=== PATIENT | female | born 1965 | race Caucasian/White ===

== ENCOUNTER 2017-02-20 08:11 | Observation (INO) | payer OTHER ==
[~2017-02-20] VITALS: Ht 162.6 cm; Wt 97.3 kg
[2017-02-20] VITALS (15 sets, daily range): BP systolic 98–165; BP diastolic 53–104; PULSE 50–77; RESP 16–24; Ht 162.6 cm; Wt 97.3 kg
[~2017-02-20 08:11] MED LIST: ACETAMINOPHEN 1000 MG/100 ML IVPB ONE; CEFAZOLIN 1 GM INJ ONE; CEFAZOLIN 2 GM/50 ML (PMX) 50 ML IVPB SCH; SOD CHLORIDE 0.9% 1,000 ML IV SCH
[2017-02-20 11:13] LABS: BASOPHILS % 0.8 % (0.0-2.0); EOSINOPHILS # 0.1 10^3/ul (0.0-0.5); EOSINOPHILS % 2.1 % (0.0-7.0); HEMATOCRIT 43.6 % (37.0-47.0); HEMOGLOBIN 14.5 g/dl (12.0-16.0); LYMPHOCYTES # 1.8 10^3/ul (0.8-2.9); LYMPHOCYTES % 36.6 % (15.0-51.0); MEAN CORPUSCULAR HEMOGLOBIN 29.1 pg (29.0-33.0); MEAN CORPUSCULAR HGB CONC 33.3 g/dl (32.0-37.0); MEAN CORPUSCULAR VOLUME 87.4 fl (82.0-101.0); MEAN PLATELET VOLUME 10.2 fl (7.4-10.4); MONOCYTE # 0.4 10^3/ul (0.3-0.9); NEUTROPHIL # 2.5 10^3/ul (1.6-7.5); NEUTROPHILS % 51.3 % (39.0-77.0); PLATELET COUNT 362 10^3/UL (140-415); RED BLOOD COUNT 4.99 10^6/ul (4.20-5.40); RED CELL DISTRIBUTION WIDTH 14.3 % (11.5-14.5); WHITE BLOOD COUNT 4.8 10^3/ul (4.8-10.8)
[2017-02-20 11:30] LABS: INR 0.91; PROTIME 12.3 Sec (12.2-14.2)
[2017-02-20 11:31] LABS: PARTIAL THROMBOPLASTIN TIME 31.3 Sec (25.0-35.0)
[2017-02-20] MEDS ORDERED: FENTAnyl 50 MCG/ML VIAL ONE (13:46)
[2017-02-20] MEDS ORDERED: MIDAZOLAM 1 MG/ML 2 ML INJ ONE (13:46)
[2017-02-20] MEDS ORDERED: PROPOFOL 20 ML ONE (13:46)
[2017-02-20 13:49] LABS: ALBUMIN 3.8 g/dl (3.3-4.9); ALBUMIN/GLOBULIN RATIO 1.26; BILIRUBIN,INDIRECT 0.3 mg/dl (0-1.1); BILIRUBIN,TOTAL 0.3 mg/dl (0.2-1.3); POTASSIUM 4.5 mmol/L (3.5-5.1); TOTAL PROTEIN 6.8 g/dl (6.1-8.1)
[2017-02-20 13:50] LABS: CALCIUM 9.1 mg/dl (8.4-10.2); CREATININE 0.61 mg/dl (0.44-1.00)
[2017-02-20] MEDS ORDERED: ISOSULFAN BLUE 1% 5 ML INJ SC ONE (14:01)
[2017-02-20] MEDS ORDERED: ONDANSETRON 4 MG INJ ONE (14:17)
[2017-02-20] MEDS ORDERED: DEXAMETHASONE 4 MG/ML 1 ML INJ ONE (14:17)
[2017-02-20] MEDS ORDERED: METOCLOPRAMIDE 10 MG INJ ONE (14:21)
[2017-02-20] MEDS ORDERED: morphine 10 MG INJ ONE (14:45)
[2017-02-20] MEDS ORDERED: HYDROmorphONE (0.2 MG/ML) 10ML SYG IV PRN ×2 (15:00)
[2017-02-20] MEDS ORDERED: LABETALOL HCL 20MG INJ IV PRN (15:00)
[2017-02-20] MEDS ORDERED: FENTAnyl 50 MCG/ML VIAL IV PRN ×2 (15:00)
[2017-02-20] MEDS ORDERED: hydrALAzine 20 MG INJ IV PRN (15:00)
[2017-02-20] MEDS ORDERED: OXYCODONE/ACETAMINOPHEN (5/325) TAB PO PRN (15:00)
[2017-02-20] MEDS ORDERED: ONDANSETRON 4 MG INJ IV PRN ×2 (15:00→16:00)
[2017-02-20] MEDS ORDERED: MEPERIDINE 25 MG INJ IV PRN (15:00)
[2017-02-20] MEDS ORDERED: LABETALOL HCL 20MG INJ ONE (15:41)
--- NOTE | 2017-02-20 15:55 | OPR ---
DATE OF OPERATION: PREOPERATIVE DIAGNOSIS: Invasive cancer of the left breast. POSTOPERATIVE DIAGNOSIS: Invasive cancer of the left breast. PROCEDURE: Needle-directed left partial mastectomy with axillary dissection utilizing sentinel lymp h node technique. ANESTHESIA: General. ANESTHESIOLOGIST: Dr. Roney Anderson. SURGEON: Иван Dotson MD COORDINATOR OF HEALTH SERVICES: Dr. Burnett. INDICATIONS FOR PROCEDURE: The patient is an unfortunate 51-year-old female who underwent screening mammography, was found to have suspicious lesions in her left breast. Two lesions were biopsied. They both were cancer. The patient was interested in breast conservation, so she was counseled on t he benefit of attempted breast conservation with needle-directed left partial mastectomy utilizing a bracketing technique and axillary dissection utilizing sentinel lymph node technique. She consente d and was scheduled for surgery. DESCRIPTION OF PROCEDURE: On the morning of surgery. The patient presented to [facility] where she underwent localization of the lesions performed by attending radi ologist, Dr. Willy Aquino. Subsequently, she was brought to the operating theater, placed under general anesthesia. The left breast and axillary region was prepped and draped in usual sterile fas hion. Approximately 4 mL of 1% Lymphazurin blue dye were then injected peritumorally. The breast w as gently massaged for approximately 12 minutes. At this point, a 4-5 cm incision was made in the l eft axillary hairline. Subcutaneous tissue and a significant amount of subcutaneous adipose tissue was dissected with cautery down to the clavipectoral fascia. Clavipectoral fascia was opened and th e axilla was entered. There was significant fibrosis and it was difficult to identify a dye-stained lymphatic. Therefore, Dr. Dotson proceeded with axillary dissection with blunt dissection along th e chest wall. The long thoracic nerve was identified and kept out of harm's way. More superiorly, the axillary vein was identified and dissected from medial to lateral. The thoracodorsal neurovascu lar bundle was then identified and dissected throughout its course. The node bearing tissue between the long thoracic nerve of thoracodorsal nerves was then harvested using the LigaSure device. Spec imen was elevated, transected, and sent for permanent pathologic analysis. The wound was irrigated. Minimal bleeding was controlled with cautery. A #10 flat Payam-Yi drain was then brought thr ough the left mid axillary line, cut to size, laid within the axilla and secured in place with 2-0 n ylon suture in the standard fashion. The axillary incision was then closed with 4-0 Vicryl suture i n subcuticular fashion. Attention was then directed to performing a partial mastectomy. A periareolar incision was made fro m the 12 o'clock location through the 3 o'clock location to the 6 o'clock location. Subcutaneous ti ssue was dissected with cautery. The skin edges were elevated with skin hooks. Wide circumferentia l dissection of the tissue associated with the [address] then took place using cautery. Sp ecimen was elevated, transected, oriented, and sent for radiographic confirmation of capture. Captu re was confirmed. Specimen was then sent for permanent pathologic analysis. The wound was irrigate d. Bleeding was controlled with cautery. There was a very large defect due to the multifocal natur e of the cancer. Therefore, Dr. Dotson made the decision to place a #10 flat Payam-Yi drain int o the wound cavity. This was done by passing it through the left mid axillary line. It was cut to size, laid within the wound cavity and secured in place with 2-0 nylon suture in standard fashion. The skin incision was then closed with 4-0 Vicryl suture in subcuticular fashion and Dermabond was a pplied to both incisions. The patient tolerated procedure well. The estimated blood loss was appro ximately 50 mL. There were no complications and the patient was transported in stable condition to the recovery room. Dictated By: ИВАН REN/IVAN Conf#: [id number] DID#: [id number]
[2017-02-20] MEDS ORDERED: morphine 2 MG INJ IV PRN (16:00)
--- NOTE | 2017-02-20 16:08 | RADRPT ---
Vent Rate: 61 bpm RR Interval: 0 msec [place] Interval: 110 msec QRS Duration: 94 msec QT Interval: 420 msec QTC Interval: 422 msec P-R-T [place]: 30 - 31 - 41 degrees Sinus rhythm with short [place] Otherwise normal ECG Electronically Signed By: Ray Rosario [id number]
[2017-02-20] MEDS: D5W-0.45 NACL + KCL 20 MEQ 1,000 ML IV SCH ×2 (17:06→23:54)
[2017-02-20] MEDS: ACETAMINOPHEN 1000MG/100ML IV 100 ML IVPB PRN ×2 (17:07→23:53)
[2017-02-20] MEDS: OXYCODONE/ACETAMINOPHEN (5/325) TAB PO PRN (21:50)
[2017-02-21 04:00] VITALS: BP 111/58; PULSE 62; RESP 17
[2017-02-21 08:00] VITALS: BP 101/58; RESP 17
[2017-02-21] MEDS: D5W-0.45 NACL + KCL 20 MEQ 1,000 ML IV SCH ×2 (08:13→15:30)
[2017-02-21] MEDS: OXYCODONE/ACETAMINOPHEN (5/325) TAB PO PRN ×2 (08:17→14:19)
--- NOTE | 2017-02-21 11:46 | PN ---
Date/Time of Note Date/Time of Note DATE: 02/21/17 TIME: 11:45 Assessment/Plan VTE Prophylaxis VTE Prophylaxis Intervention: other Lines/Catheters IV Catheter Type (from Nrsg): Peripheral IV Urinary Cath still in place: No Assessment/Plan Chief Complaint/Hosp Course 1) breast cancer - s/p surgery - postoperative care Problems: Subjective 24 Hr Interval Summary Free Text/Dictation Patient feeling ok, not too much pain Exam/Review of Systems Vital Signs Vitals Vital Signs Date Time Temp Pulse Resp B/P Pulse Ox O2 Delivery O2 Flow Rate FiO2 02/21/17 08:00 98.4 68 17 101/58 99 02/21/17 04:00 Room Air 02/20/17 16:24 2.0 Intake and Output 02/20/17 02/20/17 02/21/17 15:00 23:00 07:00 Intake Total 1325 ml 2080 ml Output Total 110 ml 55 ml Balance 1215 ml 2025 ml Exam Constitutional: well developed Head: atraumatic, normocephalic Neck: supple Respiratory: clear to auscultation Cardiovascular: regular rate and rhythm Gastrointestinal: non-tender, soft Extremities: normal pulses Results Result Diagram: 02/20/17 1055 02/20/17 1300 Results 24 hrs Laboratory Tests Test 02/20/17 13:00 Sodium Level 141 Potassium Level 4.5 Chloride Level 102 Carbon Dioxide Level 26 Anion Gap 18 H Blood Urea Nitrogen 6 L Creatinine 0.61 Glucose Level 78 Calcium Level 9.1 Total Bilirubin 0.3 Direct Bilirubin 0.00 Indirect Bilirubin 0.3 Aspartate Amino Transf (AST/SGOT) 60 H Alanine Aminotransferase (ALT/SGPT) 32 Alkaline Phosphatase 101 Total Protein 6.8 Albumin 3.8 Globulin 3.00 Albumin/Globulin Ratio 1.26 Medications Medications Current Medications Ondansetron HCl 4 mg 4 mg Q6H PRN IV NAUSEA AND/OR VOMITING; Start 02/20/17 at 16:00 Potassium Chloride/Dextrose/ Sod Cl (D5-1/2ns + KCl 20 Meq) 1,000 ml @ 125 mls/ hr Q8H IV Last administered on 02/21/17t 08:13; Admin Dose 125 MLS/HR; Start 02/20/17 at 15:30 Morphine Sulfate 2 mg 2 mg Q1H PRN IV PAIN; Start 02/20/17 at 16:00 Acetaminophen (Ofirmev 1000mg/ 100ml Iv) 100 ml @ 400 mls/hr Q6H PRN IVPB PAIN Last administered on 02/20/17 23:53; Admin Dose 400 MLS/HR; Start at 16:00 Oxycodone/ Acetaminophen (Percocet (5/ 325)) 1 tab Q4H PRN PO PAIN Last administered on 02/21/17 08:17; Admin Dose 1 TAB; Start 02/20/17 at 20:30 LACI ANAYA Feb 21, 2017 11:46
--- NOTE | 2017-02-21 13:03 | HP ---
DATE OF ADMISSION: 02/20/2017 HISTORY OF PRESENT ILLNESS: Patient is a 51-year-old female with history of nipple discharge which was subsequently investigated by ultrasound and mammogram and subsequently the patient underwent bio psy and was diagnosed with invasive cancer of the left breast. The patient underwent needle directe d left partial mastectomy with axillary dissection. The patient had significant postoperative pain. The patient is being admitted for further evaluation and management. The patient denied any histo ry of headache, dizziness, syncope. No history of fever or chills. No history of nausea, vomiting, or diarrhea. No history of abdominal pain. No history of focal weakness. No history of fever or chills. No history of shortness of breath. REVIEW OF SYSTEMS: Other than postoperative pain the review of systems are unremarkable. PAST SURGICAL HISTORY: Status post hysterectomy. FAMILY HISTORY: Noncontributory. SOCIAL HISTORY: No smoking, no alcohol. ALLERGIES: NONE. MEDICATIONS: None. PHYSICAL EXAMINATION: GENERAL: The patient is conscious, awake, alert. VITAL SIGNS: Temperature 98.4, pulse 69, respirations 19, blood pressure 111/65, O2 sat 99% 2 liter s nasal cannula. HEENT: No eye discharge or redness. Nose and ears normal. Oropharynx clear. NECK: Supple. No mass or thyromegaly. CHEST: Fairly clear. CARDIOVASCULAR: S1, S2 normal. No murmurs. ABDOMEN: Soft, nontender. No palpable mass. EXTREMITIES: No leg edema. Pedal pulses palpable. SKIN: Without rash. NEUROLOGIC: The patient is awake, alert, fairly oriented with no gross focal deficit. LABORATORY DATA: WBC 4.8, hemoglobin 14.5, platelet , Sodium 140, potassium 4.5, BUN 6, creati nine 0.6. Liver enzymes revealed AST 60, ALT 32, alkaline phosphatase 101. IMPRESSION: 1. Left breast cancer status post partial mastectomy. PLAN: Patient admitted on medical floor. Patient will be started on clear liquid diet, which will be advanced as tolerated. The patient will be also started on Tylenol, Percocet and IV morphine for pain control, depending upon severity, will use SCD for DVT prophylaxis and if patient continues to do well, she will be discharged home tomorrow. Dictated By: MARLENE REY/IVAN Conf#: [id number] [facility]#: [id number]
[2017-02-21 13:15] VITALS: BP 92/55; RESP 18
[2017-02-21 19:10] VITALS: BP 104/53; RESP 18
[2017-02-21 21:50] VITALS: BP 105/62; PULSE 66; RESP 18
--- NOTE | 2017-02-22 10:43 | PN ---
DATE: 02/21/2017 Postop day #1 procedure left needle located partial mastectomy with axillary dissection. SUBJECTIVE: No specific complaints. Has some pain, needs pain medications for that. OBJECTIVE GENERAL: Awake, alert. VITAL SIGNS: Temperature 98.6, heart rate 69, respiration 18, blood pressure 92/55, saturation 96% on room air. SKIN: There are 2 Payam-[address] in [address] One of them has drained 40 mL in the past 24 hour s. The other one has drained 25 mL in the past 24 hours. It is serosanguineous. ASSESSMENT: A 51-year-old with invasive cancer of the left breast, underwent left needle located pa rtial mastectomy and axillary dissection yesterday, today is feeling good, has some chest wall pain for which pain medication was given. The patient moves her arm completely. Dressing is intact, it is not tight. Payam-Yi drains have drained totally about 65 mL in the past 24 hours, it is ser osanguineous. PLAN: The patient is going to be discharged today with pain medication, to be followed by Dr. Dotson in the office, the patient is to call the office and make an appointment. Meanwhile, the patient w as taught how to take care of the Payam-Yi drains, how to drain them and record them daily. Lennox lorenz the questions were answered. Dictated By: YASMINE BECKHAM/IVAN Conf#: [id number] DID#: [id number]
--- NOTE | 2017-02-22 12:03 | RADRPT ---
PROCEDURE: XR Chest. CLINICAL INDICATION: Preoperative, left breast cancer TECHNIQUE: Single frontal view of the chest was obtained COMPARISON: None FINDINGS: No pleural effusion or pneumothorax. Low lung volumes with bibasilar atelectasis. Unremarkable cardiomediastinal silhouette. No acute osseous abnormality. IMPRESSION: No acute cardiopulmonary disease. Low lung volumes with bibasilar atelectasis. RPTAT: EE Physician Eliezer Date Time Electronically viewed and signed by Neal Fernandez Physician on 02/22/2017 12:02 /
== END 2017-02-21 21:55 | disposition home or self-care (01) ==
LOC: SDS 08:11 → REC 16:55 → MS1 16:55
PROVIDERS: ADMIT Surgery Surgical Oncology; ATTEND Surgery Surgical Oncology
DX: D05.12 Intraductal carcinoma in situ of left breast (principal)
CPT/HCPCS: 19301; 38500; 38792; 71010; 80053; 85025; 85610; 85730; 88307; 93005; G0378; J0131; J0690; J1100; J2250; J2270; J2405; J2765; J3010; J3480; Q9968

== ENCOUNTER 2017-05-07 07:41 | Day surgery (SDC) | END 2017-05-07 16:03 | disposition home or self-care (01) ==